=== PATIENT | female | born 1940 | race Caucasian/White ===

== ENCOUNTER 2017-07-12 04:45 | Inpatient (IN) | payer OTHER ==
[2017-07-12] VITALS (7 sets, daily range): BP systolic 114–152; BP diastolic 63–77; PULSE 72–80; TEMP 36.7–37.3; O2SAT 93–95; Ht 160 cm; Wt 55.4 kg
[~2017-07-12] VITALS: Ht 160 cm; Wt 55.4 kg
[~2017-07-12 04:45] MED LIST: ALPR-411 PO; ANT25 PO; ATOR10TA88 PO; BENZ100C6 PO; BUSP15TA70 PO; CALC-342 PO; CARB25TA12 PO; CHOL100010 PO; CLX20 PO; DENO60SO SQ; FLUT0.0529 NAE; LORA10CA2 PO; MAGN200T3 PO; OMEG10007 PO; PROP10TA7 PO
--- NOTE | 2017-07-12 05:16 | EMERGENCY ROOM VISIT NOTE ---
History Report prepared by Lanny: Kat Saucedo Under the Supervision of: Dr. Zoe Lui D.O. First contact with patient: 04:53 Chief Complaint: GI ASSESSMENT Stated Complaint: RECTAL BLEEDING, ABDOMINAL PAIN History of Present Illness The patient is a 77 year old female who presents to the Emergency Room with complaints of constant abdominal cramping that began two hours ago. The patient notes that she also has had bright red rectal bleeding. She denies ever having bloody stools or GI bleeding in the past. The patient notes that she felt ill prior to going to sleep last night. The patient has had routine colonoscopies and she believe she is due for another routine procedure soon. The patient has no known current medical problems and takes no daily medication. Source of History: patient Onset: 2 houirs ago Position: abdomen Quality: cramping Timing: constant Note: Pt notes rectal bleeding. Review of Systems See HPI for pertinent positives & negatives. A total of 10 systems reviewed and were otherwise negative. Past Medical & Surgical Medical Problems: (1) Dyslipidemia (2) Hemorrhoid (3) Kidney stone Surgical Problems: (1) History of appendectomy Family History Cancer Kidney stone Social History Smoking Status: Former Smoker Alcohol Use: none Drug Use: none Marital Status: Housing Status: lives with family Occupation Status: unemployed Current/Historical Medications No Active Prescriptions or Reported Meds Allergies Coded Allergies: Oxycodone (Verified Allergy, Unknown, nausea, 07/12/17) Sulfa Drugs (Verified Allergy, Unknown, 07/12/17) Physical Exam Vital Signs Date Time Temp Pulse Resp B/P (MAP) Pulse Ox O2 Delivery O2 Flow Rate FiO2 07/12/17 06:36 70 16 95 07/12/17 06:31 145/83 07/12/17 06:21 72 13 97 07/12/17 06:06 71 14 97 07/12/17 06:02 71 16 97 07/12/17 06:01 143/76 07/12/17 06:00 73 23 97 Room Air 07/12/17 05:33 79 07/12/17 05:31 137/97 07/12/17 04:50 36.8 92 20 173/82 95 Room Air Physical Exam HEENT: Head - normocephalic and atraumatic Pupils are equal, round, and reactive to light. Extraocular eye muscles are intact, and sclera are anicteric. Nose - moist nasal mucosa without discharge. Mouth - moist buccal mucosa. Oropharynx is nonerythematous and there is no tonsillar exudate or edema noted. Neck: Supple; no JVD, nuchal rigidity, cervical lymphadenopathy. Heart: Regular rate and rhythm. There is a normal S1 and S2 with no murmurs, clicks, or gallops appreciated. Lungs: Clear to auscultation bilaterally with no wheezes, rales, or rhonchi. Abdomen: Soft, pain with palpation of epigastrium and LLQ, nondistended, with good bowel sounds. There are no palpable pulsatile masses or hepatosplenomegaly. There is no guarding, rigidity, or rebound noted. Extremities: No evidence of cyanosis, clubbing, or edema. There are easily palpable peripheral pulses. Skin: warm and dry with good turgor and no rashes. Rectal: No obvious hemorrhoids appreciated. The patient had bright red blood from the rectum. Medical Decision & Procedures ER Provider Diagnostic Interpretation: CT scan of the abdomen/pelvis: As interpreted by radiology IMPRESSION: 1. Moderate wall thickening with mucosal hyperemia and surrounding inflammatory stranding involves the descending colon extending from the splenic flexure to the descending sigmoid junction compatible with colitis from infectious, inflammatory or ischemic etiology. Correlate with laboratory values. 2. Colonic diverticulosis without evidence of acute diverticulitis. 3. Cholelithiasis without CT evidence of acute cholecystitis. Mild prominence of the common bile duct, 8 mm without definite obstructing stone or mass identified. 4. Bilateral renal calcifications suggest nephrolithiasis. No hydronephrosis. Laboratory Results 07/12/17 05:20 Red Blood Count 4.29, Mean Corpuscular Volume 92.8, Mean Corpuscular Hemoglobin 31.2, Mean Corpuscular Hemoglobin Concent 33.7, Mean Platelet Volume 10.3, Neutrophils (%) (Auto) 74.4, Lymphocytes (%) (Auto) 14.4, Monocytes (%) (Auto) 8.9, Eosinophils (%) (Auto) 1.8, Basophils (%) (Auto) 0.3, Neutrophils # (Auto) 7.74, Lymphocytes # (Auto) 1.50, Monocytes # (Auto) 0.93, Eosinophils # (Auto) 0.19, Basophils # (Auto) 0.03 07/12/17 05:20 Test 07/12/17 05:20 07/12/17 05:40 White Blood Count 10.41 K/uL (4.8-10.8) Red Blood Count 4.29 M/uL (4.2-5.4) Hemoglobin 13.4 g/dL (12.0-16.0) Hematocrit 39.8 % (37-47) Mean Corpuscular Volume 92.8 fL (80-100) Mean Corpuscular Hemoglobin 31.2 pg (25-34) Mean Corpuscular Hemoglobin Concent 33.7 g/dl (32-36) Platelet Count 223 K/uL (130-400) Mean Platelet Volume 10.3 fL (7.4-10.4) Neutrophils (%) (Auto) 74.4 % Lymphocytes (%) (Auto) 14.4 % Monocytes (%) (Auto) 8.9 % Eosinophils (%) (Auto) 1.8 % Basophils (%) (Auto) 0.3 % Neutrophils # (Auto) 7.74 K/uL (1.4-6.5) Lymphocytes # (Auto) 1.50 K/uL (1.2-3.4) Monocytes # (Auto) 0.93 K/uL (0.11-0.59) Eosinophils # (Auto) 0.19 K/uL (0-0.5) Basophils # (Auto) 0.03 K/uL (0-0.2) RDW Standard Deviation 48.3 fL (36.4-46.3) RDW Coefficient of Variation 14.2 % (11.5-14.5) Immature Granulocyte % (Auto) 0.2 % Immature Granulocyte # (Auto) 0.02 K/uL (0.00-0.02) Anion Gap 6.0 mmol/L (3-11) Est Creatinine Clear Calc Drug Dose 49.2 ml/min Estimated GFR () 84.4 Estimated GFR (Non- 72.8 BUN/Creatinine Ratio 27.6 (10-20) Calcium Level 9.2 mg/dl (8.5-10.1) Total Bilirubin 0.4 mg/dl (0.2-1) Aspartate Amino Transf (AST/SGOT) 15 U/L (15-37) Alanine Aminotransferase (ALT/SGPT) 12 U/L (12-78) Alkaline Phosphatase 99 U/L (45-117) Total Protein 6.8 gm/dl (6.4-8.2) Albumin 3.5 gm/dl (3.4-5.0) Globulin 3.3 gm/dl (2.5-4.0) Albumin/Globulin Ratio 1.1 (0.9-2) Urine Color YELLOW Urine Appearance CLEAR (CLEAR) Urine pH 7.0 (4.5-7.5) Urine Specific [place] 1.022 (1.000-1.030) Urine Protein NEG (NEG) Urine Glucose (UA) NEG (NEG) Urine Ketones NEG (NEG) Urine Occult Blood NEG (NEG) Urine Nitrite NEG (NEG) Urine Bilirubin NEG (NEG) Urine Urobilinogen NEG (NEG) Urine Leukocyte Esterase NEG (NEG) Laboratory results per my review. Medications Administered Medications (Trade) Dose Ordered Sig/Edison Route Start Time Stop Time Status Last Admin Dose Admin Ondansetron HCl (Zofran Inj) 4 mg NOW STAT IV 07/12/17 06:22 07/12/17 06:23 DC 07/12/17 06:32 4 MG Morphine Sulfate (MoRPHine SULFATE INJ) 4 mg NOW STAT IV 07/12/17 06:22 07/12/17 06:23 DC 07/12/17 06:36 4 MG Sodium Chloride 1,000 ml @ 250 mls/hr Q4H STAT IV 07/12/17 06:24 07/12/17 10:23 07/12/17 06:43 250 MLS/HR Procedure Morphine Sulfate IV, Zofran Inj IV, NSS IV. ED Course 0501: Past medical records reviewed. The patient was evaluated in room B2. A complete history and physical exam was performed. An IV lock was initiated and labs were drawn as above. 0622: Morphine Sulfate 4 mg IV, Zofran Inj 4 mg IV. 0624: Sodium Chloride 1000 ml @ 250 mls/hr IV. The patient went for CT scan of the abdomen/pelvis to rule out diverticulitis. 0645: Upon reevaluation, I discussed findings and results with the patient. She verbalized agreement of the treatment plan. I spoke with Dr. Gilbert of the [facility] Hospitalist Service. The patient will be evaluated for further management and care. Medical Decision The patient is a 77 year old female who presents to the Emergency Room with complaints of constant abdominal cramping that began two hours ago. Differential diagnosis includes lower GI bleed, anemia, hemorrhoid, diverticulitis. Lab results show normal white count, stable H&H, BUN 22, creatinine 0.7, glucose 112, LFT normal, urine pending. This is a 69-year-old female patient who is in very good health and presents to the emergency department with crampy abdominal pain and lower GI bleeding. The patient describes having previous colonoscopies which were unremarkable. She denies any constipation. She denies fevers, chills or vomiting. Her H&H is stable. CT scan shows evidence of colitis. I discussed the case with the [facility] Hospitalist and they will evaluate further management. Medication Reconcilliation Current Medication List: was personally reviewed by me Blood Pressure Screening Patient's blood pressure: Elevated blood pressure Blood pressure disposition: Elevated BP felt to be situational Consults Time Called: 0644 Consulting Physician: Dr. Stearns Returned Call: [phone] Discussed the patient's case. The patient will be evaluated for further management. Impression Primary Impression: Lower GI bleed Additional Impression: Colitis Scribe Attestation The scribe's documentation has been prepared under my direction and personally reviewed by me in its entirety. I confirm that the note above accurately reflects all work, treatment, procedures, and medical decision making performed by me. Departure Information Prescriptions No Active Prescriptions or Reported Meds Referrals Hortencia Ortiz M.D. (PCP) Patient Instructions My [facility] Problem Qualifiers
[2017-07-12 05:43] LABS: BASO % 0.3 %; BASO ABS # 0.03 K/uL (0-0.2); COMPLETE YES; EOS % 1.8 %; HEMATOCRIT 39.8 % (37-47); IG% 0.2 %; LYMPH % 14.4 %; MEAN CELL VOLUME 92.8 fL (80-100); MEAN CORPUSCULAR HEMOGLOBIN 31.2 pg (25-34); MEAN CORPUSCULAR HGB CONC 33.7 g/dl (32-36); MEAN PLATELET VOLUME 10.3 fL (7.4-10.4); MONO % 8.9 %; NEUT % 74.4 %; PLATELET COUNT 223 K/uL (130-400); RED BLOOD COUNT 4.29 M/uL (4.2-5.4); WHITE BLOOD COUNT 10.41 K/uL (4.8-10.8)
[2017-07-12 06:03] LABS: BUN/CREATININE RATIO 27.6 (10-20); CALCIUM 9.2 mg/dl (8.5-10.1); CREATININE 0.78 mg/dl (0.60-1.20)
[2017-07-12 06:06] LABS: ALB/GLOB RATIO 1.1 (0.9-2)
[2017-07-12] MEDS ORDERED: ONDANSETRON INJ 2 MG/ML 2 ML VIAL IV STA (06:22)
[2017-07-12] MEDS ORDERED: MoRPHine SULFATE 4 MG/ML 1 ML CARP\\VIAL IV STA (06:22)
[2017-07-12] MEDS ORDERED: SODIUM CHLORIDE 0.9% 1000ML 1,000 ML IV STA (06:24)
[2017-07-12 06:52] LABS: URINE APPEARANCE CLEAR (CLEAR); URINE BILIRUBIN NEG (NEG); URINE COLOR YELLOW; URINE NITRITE NEG (NEG); URINE SPECIFIC GRAVITY 1.022 (1.000-1.030); UROBILINOGEN NEG (NEG)
[2017-07-12 06:54] LABS: REVIEW REQ? NO
[2017-07-12 06:55] LABS: MANUAL MICROSCOPIC REQUIRED? NO
--- NOTE | 2017-07-12 07:17 | DIAGNOSTIC IMAGING REPORT ---
ABD/PELVIS IV CONTRAST ONLY HISTORY: 77 years-old Female eval for diverticulitis acute generalized abdominal pain with rectal bleeding. Initial exam. COMPARISON: None available. TECHNIQUE: Multiple axial CT images of the abdomen and pelvis were obtained following the intravenous administration of 93 mL Optiray 320. A dose lowering technique was used consistent with the principals of AMINTA. FINDINGS: Lung bases are generally clear with minimal subsegmental atelectasis and/or pleural parenchymal scarring of the lung bases. 2 mm noncalcified pulmonary nodule seen within the inferior segment lingula on image 20, nonspecific and likely benign. There is no pneumoperitoneum. Imaged inferior cardiac chambers are unremarkable with coronary arterial calcifications. Liver, spleen, and adrenal glands are unremarkable. Gallstones are seen within the gallbladder lumen without CT evidence of acute cholecystitis. There is moderate diffuse pancreatic atrophy atrophy. There is mild prominence of the common bile duct, 8 mm without obstructing stone or mass identified. There may also be mild prominence of the distal pancreatic duct. 4 mm calcification of the superior pole left kidney suggest calculus. Renal parenchymal scarring of the superior pole left kidney is noted. 3 mm calcification is seen within the inferior pole right kidney. No ureteral calculi or hydronephrosis. Urinary bladder is unremarkable. Prior hysterectomy. Since of atherosclerotic plaquing of the abdominal aorta and branch vessels is noted. No bulky adenopathy. There is a small sliding-type hiatal hernia. There is no bowel obstruction. Scattered noninflamed colonic diverticula are present. There is moderate wall thickening with mucosal hyperemia involving the descending colon extending from the splenic flexure to the descending sigmoid junction. Mild surrounding inflammatory stranding also noted. Moderate stool burden of the right hemicolon. Appendix not seen, however no secondary evidence of acute appendicitis. Soft tissues are unremarkable. The bones are demineralized but appear intact. Advanced spine degenerative changes are seen at several levels. 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 Prior posterior decompression with interbody marshall and screw fusion hardware at L2-S1. Prior discectomy changes at L3-L4 and L4-L5. IMPRESSION: 1. Moderate wall thickening with mucosal hyperemia and surrounding inflammatory stranding involves the descending colon extending from the splenic flexure to the descending sigmoid junction compatible with colitis from infectious, inflammatory or ischemic etiology. Correlate with laboratory values. 2. Colonic diverticulosis without evidence of acute diverticulitis. 3. Cholelithiasis without CT evidence of acute cholecystitis. Mild prominence of the common bile duct, 8 mm without definite obstructing stone or mass identified. 4. Bilateral renal calcifications suggest nephrolithiasis. No hydronephrosis. The above report was generated using voice recognition software. It may contain grammatical, syntax or spelling errors. Electronically signed by: jE Tello M.D. 07/12/2017 7:16 AM Dictated Date/Time: 07/12/2017 7:05 AM
[2017-07-12] MEDS ORDERED: ONDANSETRON INJ 2 MG/ML 2 ML VIAL IV PRN (08:45)
[2017-07-12] MEDS ORDERED: POLYETHYLENE (MIRALAX) 17 GM PACK PO PRN (08:45)
--- NOTE | 2017-07-12 09:21 | History and Physical ---
History & Physical Date & Time of Service: Jul 12, 2017 at 08:21 Chief Complaint: Rectal Bleeding, Abdominal Pain Primary Care Physician: Hortencia Ortiz M.D. History of Present Illness Source: patient, clinic records, hospital records, friend 77 year old female with no significant PMH and not taking any prescription med presents to the Emergency Room with complaints of bright red rectal bleeding associated with abdominal pain. Pt said that last night she went out to eat with her friends. she said late night she felt sick. she said that she started to vomiting. She had many episodes of non bloody vomiting. She said that she started to have multiple episode of bloody diarrhea associated with cramping abdominal pain located in the mid abdomen. Pain is non radiated, constant, grade 6 out 10. Alleviated with the pain med she was given in the ER. Pt said that every few months she sometimes develops some abdominal pain and diarrhea but never seen blood in her stool. she said that she was feeling a little dizzy last night and chest discomfort in the mid epigastric area. She said that she believes that she is due for her routine colonoscopy. Last episodes of vomiting was last night. Last bloody episodes of diarrhea was this morning. As per ER team patient had bright red blood from the rectum. Currently denies any chest pain, palpitation, dizziness, fever and sob. Past Medical/Surgical History Medical Problems: (1) Dyslipidemia Status: Chronic (2) Hemorrhoid Status: Resolved (3) Kidney stone Status: Resolved Surgical Problems: (1) History of appendectomy Status: Resolved Family History Cancer Kidney stone Social History Smoking Status: Former Smoker Drug Use: none Marital Status: Housing status: lives with family Occupational Status: unemployed Immunizations History of Influenza Vaccine: Yes Influenza Vaccine Date: Aug 01, 2011 History of Tetanus Vaccine?: Unknown History of Pneumococcal: Yes Pneumococcal Date: Aug 01, 2011 History of Hepatitis B Vaccine: Unknown Multi-Drug Resistant Organisms History of MDRO: No Allergies Coded Allergies: Oxycodone (Verified Allergy, Unknown, nausea, 07/12/17) Sulfa Antibiotics (Verified Allergy, Unknown, UNKNOWN, 07/12/17) Home Medications No Active Prescriptions or Reported Meds Review of Systems Constitutional: No fever, No chills Eyes: No redness, No discharge ENT: No sore throat Respiratory: No cough, No sputum, No wheezing Cardiovascular: + problem reported (Chest discomfort) Abdomen: + pain, + nausea, + vomiting, + diarrhea, + GI bleeding Musculoskeletal: No calf pain Genitourinary - Female: No dysuria, No hematuria Neurologic: No memory loss, No paralysis Psychiatric: No substance abuse Hematologic / Lymphatic: No night sweats Integumentary: No rash, No itch Physical Exam Vital Signs Date Time Temp Pulse Resp B/P (MAP) Pulse Ox O2 Delivery O2 Flow Rate FiO2 07/12/17 08:25 71 16 143/70 95 Room Air 07/12/17 06:36 70 16 95 07/12/17 06:31 145/83 07/12/17 06:21 72 13 97 07/12/17 06:06 71 14 97 07/12/17 06:02 71 16 97 07/12/17 06:01 143/76 07/12/17 06:00 73 23 97 Room Air 07/12/17 05:33 79 07/12/17 05:31 137/97 07/12/17 04:50 36.8 92 20 173/82 95 Room Air General Appearance: WD/WN, no apparent distress Head: normocephalic, atraumatic Eyes: PERRL, EOMI ENT: normal ENT inspection Neck: no JVD Respiratory/Chest: normal breath sounds, no respiratory distress, no accessory muscle use Cardiovascular: regular rate, rhythm, no JVD Abdomen/GI: normal bowel sounds, + tenderness Back: no CVA tenderness Extremities/Musculoskelatal: no calf tenderness Neurologic/Psych: no motor/sensory deficits, alert, oriented x 3 Skin: warm/dry, no rash Diagnostics Laboratory Results Results Past 24 Hours Test 07/12/17 05:20 07/12/17 05:40 Range/Units White Blood Count 10.41 4.8-10.8 K/uL Red Blood Count 4.29 4.2-5.4 M/uL Hemoglobin 13.4 12.0-16.0 g/dL Hematocrit 39.8 37-47 % Mean Corpuscular Volume 92.8 80-100 fL Mean Corpuscular Hemoglobin 31.2 25-34 pg Mean Corpuscular Hemoglobin Concent 33.7 32-36 g/dl Platelet Count 223 130-400 K/uL Mean Platelet Volume 10.3 7.4-10.4 fL Neutrophils (%) (Auto) 74.4 % Lymphocytes (%) (Auto) 14.4 % Monocytes (%) (Auto) 8.9 % Eosinophils (%) (Auto) 1.8 % Basophils (%) (Auto) 0.3 % Neutrophils # (Auto) 7.74 1.4-6.5 K/uL Lymphocytes # (Auto) 1.50 1.2-3.4 K/uL Monocytes # (Auto) 0.93 0.11-0.59 K/uL Eosinophils # (Auto) 0.19 0-0.5 K/uL Basophils # (Auto) 0.03 0-0.2 K/uL RDW Standard Deviation 48.3 36.4-46.3 fL RDW Coefficient of Variation 14.2 11.5-14.5 % Immature Granulocyte % (Auto) 0.2 % Immature Granulocyte # (Auto) 0.02 0.00-0.02 K/uL Sodium Level 142 136-145 mmol/L Potassium Level 4.0 3.5-5.1 mmol/L Chloride Level 109 98-107 mmol/L Carbon Dioxide Level 27 21-32 mmol/L Anion Gap 6.0 3-11 mmol/L Blood Urea Nitrogen 22 7-18 mg/dl Creatinine 0.78 0.60-1.20 mg/dl Est Creatinine Clear Calc Drug Dose 49.2 ml/min Estimated GFR () 84.4 Estimated GFR (Non- 72.8 BUN/Creatinine Ratio 27.6 10-20 Random Glucose 112 70-99 mg/dl Calcium Level 9.2 8.5-10.1 mg/dl Total Bilirubin 0.4 0.2-1 mg/dl Aspartate Amino Transf (AST/SGOT) 15 15-37 U/L Alanine Aminotransferase (ALT/SGPT) 12 12-78 U/L Alkaline Phosphatase 99 45-117 U/L Total Protein 6.8 6.4-8.2 gm/dl Albumin 3.5 3.4-5.0 gm/dl Globulin 3.3 2.5-4.0 gm/dl Albumin/Globulin Ratio 1.1 0.9-2 Urine Color YELLOW Urine Appearance CLEAR CLEAR Urine pH 7.0 4.5-7.5 Urine Specific [place] 1.022 1.000-1.030 Urine Protein NEG NEG Urine Glucose (UA) NEG NEG Urine Ketones NEG NEG Urine Occult Blood NEG NEG Urine Nitrite NEG NEG Urine Bilirubin NEG NEG Urine Urobilinogen NEG NEG Urine Leukocyte Esterase NEG NEG Diagnostic Radiology ABD/PELVIS IV CONTRAST ONLY HISTORY: 77 years-old Female eval for diverticulitis acute generalized abdominal pain with rectal bleeding. Initial exam. COMPARISON: None available. TECHNIQUE: Multiple axial CT images of the abdomen and pelvis were obtained following the intravenous administration of 93 mL Optiray 320. A dose lowering technique was used consistent with the principals of AMINTA. FINDINGS: Lung bases are generally clear with minimal subsegmental atelectasis and/or pleural parenchymal scarring of the lung bases. 2 mm noncalcified pulmonary nodule seen within the inferior segment lingula on image 20, nonspecific and likely benign. There is no pneumoperitoneum. Imaged inferior cardiac chambers are unremarkable with coronary arterial calcifications. Liver, spleen, and adrenal glands are unremarkable. Gallstones are seen within the gallbladder lumen without CT evidence of acute cholecystitis. There is moderate diffuse pancreatic atrophy atrophy. There is mild prominence of the common bile duct, 8 mm without obstructing stone or mass identified. There may also be mild prominence of the distal pancreatic duct. 4 mm calcification of the superior pole left kidney suggest calculus. Renal parenchymal scarring of the superior pole left kidney is noted. 3 mm calcification is seen within the inferior pole right kidney. No ureteral calculi or hydronephrosis. Urinary bladder is unremarkable. Prior hysterectomy. Since of atherosclerotic plaquing of the abdominal aorta and branch vessels is noted. No bulky adenopathy. There is a small sliding-type hiatal hernia. There is no bowel obstruction. Scattered noninflamed colonic diverticula are present. There is moderate wall thickening with mucosal hyperemia involving the descending colon extending from the splenic flexure to the descending sigmoid junction. Mild surrounding inflammatory stranding also noted. Moderate stool burden of the right hemicolon. Appendix not seen, however no secondary evidence of acute appendicitis. Soft tissues are unremarkable. The bones are demineralized but appear intact. Advanced spine degenerative changes are seen at several levels. 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 Prior posterior decompression with interbody marshall and screw fusion hardware at L2-S1. Prior discectomy changes at L3-L4 and L4-L5. IMPRESSION: 1. Moderate wall thickening with mucosal hyperemia and surrounding inflammatory stranding involves the descending colon extending from the splenic flexure to the descending sigmoid junction compatible with colitis from infectious, inflammatory or ischemic etiology. Correlate with laboratory values. 2. Colonic diverticulosis without evidence of acute diverticulitis. 3. Cholelithiasis without CT evidence of acute cholecystitis. Mild prominence of the common bile duct, 8 mm without definite obstructing stone or mass identified. 4. Bilateral renal calcifications suggest nephrolithiasis. No hydronephrosis. The above report was generated using voice recognition software. It may contain grammatical, syntax or spelling errors. Electronically signed by: Ej Tello M.D. 07/12/2017 7:16 AM Dictated Date/Time: 07/12/2017 7:05 AM Impression Assessment and Plan Bright Red Rectal Bleeding Possible related to ischemic colitis vs infectious colitis CT abd/pelvis showed Moderate wall thickening with mucosal hyperemia and surrounding inflammatory stranding involves the descending colon extending from the splenic flexure to the descending sigmoid junction compatible with colitis. Started on IV flagyl and cipro Lactic acid acid normal Hbg stable will monitor H/H GI consulted Case discussed with Dr. Lozano recommended to continue abx continue supportive management outpatient Colonoscopy in 6 months ok to start on clear liquid diet pain management Chest discomfort Atypical features Need to r/o ACS will check troponin EKG showed no ischemic changes No aspirin given due to GI bleed will monitor in tele GI px on PPI DVT px on SCDs Code status FULL no mech ventilation as per my discussion with patient. Level of Care Telemetry Resuscitation Status FULL NO MECH VENTILATION VTE Prophylaxis VTE Risk Assessment Done? Y/N: Yes Risk Level: Moderate Given or contraindicated: SCD's
[2017-07-12] MEDS ORDERED: METRONIDAZOLE 500MG / 100ML NSS ONE (09:32)
[2017-07-12] MEDS ORDERED: SODIUM CHLORIDE 0.9% 1000ML 1,000 ML IV SCH (10:30)
[2017-07-12] MEDS: CIPROFLOXACIN / D5W 400 MG in PREMIXED IN D5W 200 ML IV SCH ×2 (11:03→22:18)
[2017-07-12 12:51] LABS: MEAN CELL VOLUME 94.1 fL (80-100); MEAN CORPUSCULAR HEMOGLOBIN 29.9 pg (25-34); MEAN CORPUSCULAR HGB CONC 31.8 g/dl (32-36); MEAN PLATELET VOLUME 10.3 fL (7.4-10.4); PLATELET COUNT 217 K/uL (130-400); RED BLOOD COUNT 4.25 M/uL (4.2-5.4); WHITE BLOOD COUNT 10.22 K/uL (4.8-10.8)
--- NOTE | 2017-07-12 15:08 | GASTROINTESTINAL CONSULTATION ---
DATE OF CONSULTATION: 07/12/2017 AGE: 77. SEX: Female. RACE: . ATTENDING PHYSICIAN: Dr. José. CONSULTING PHYSICIAN: Dr. Lozano. REASON FOR CONSULTATION: GI bleed. HISTORY OF PRESENT ILLNESS: Armida Johnson is a 77-year-old female who presented to the Department of Emergency Medicine early this morning with complaints of rectal bleeding and abdominal pain. She states that over the past few weeks, she has been having intermittent chest pain as well as dyspnea on exertion and describes the pain as intermittent pressure in the substernal region, nonradiating, but does state that it gets worse with walking up steps. She states that she had period last evening of some crampy abdominal pain as well as diaphoresis and developed several bloody stools. Her H&H on arrival was 13.4 and 39.8. Her liver panel was unremarkable. She did undergo a CT scan of the abdomen and pelvis and was noted to have moderate wall thickening with mucosal hyperemia and surrounding inflammatory stranding, involving the descending colon from the splenic flexure to the sigmoid junction. She was subsequently admitted. She was started on Cipro and Flagyl therapy. She stated that she was feeling slightly improved, but still did complain of intermittent chest pain. I spoke with Dr. José in this regard and he had already ordered an EKG and troponin levels, which were pending. PAST MEDICAL HISTORY: Includes hyperlipidemia, hemorrhoids, and nephrolithiasis. PAST SURGICAL HISTORY: Includes an appendectomy. ALLERGIES: OXYCODONE AND SULFA ANTIBIOTICS. MEDICATIONS AT PRESENT: Include Cipro 400 mg IV q. 12 hours, Flagyl 500 mg IV q. 8 hours, Zofran 4 mg IV q. 6 hours p.r.n. nausea, and MiraLax 17 grams p.o. daily p.r.n. constipation. SOCIAL HISTORY: She denies any tobacco, alcohol or illicit drug use. She is . FAMILY HISTORY: Negative for GI malignancy or inflammatory bowel disease. REVIEW OF SYSTEMS: Negative x12 system review other than pertinent positives listed in the HPI. PHYSICAL EXAMINATION: VITAL SIGNS: Temp 36.8, pulse 72, respirations 16, blood pressure 117/70, and pulse ox 93% on room air. GENERAL: Awake and cooperative. No acute distress. HEAD: Normocephalic and atraumatic. EYES: Pupils equally round. Extraocular muscles are intact. ENT: External evaluation of ears and nose is normal. Oropharynx is clear. NECK: Soft and supple. There is no JVD or lymphadenopathy. CHEST: Clear to auscultation bilaterally. CARDIOVASCULAR SYSTEM: Regular rate and rhythm. ABDOMEN: Soft. Tender in left upper quadrant and left lower quadrant. Nondistended. There are positive bowel sounds. There is no hepatosplenomegaly or stigmata of chronic liver disease. EXTREMITIES: No clubbing, cyanosis, or edema. SKIN: Soft and pink. Good turgor. LABORATORY STUDIES: Reviewed. RADIOGRAPHIC STUDIES: Reviewed and as per the HPI. IMPRESSION: A 77-year-old female presenting with abdominal pain, rectal bleeding and CT imaging consistent with evidence of ischemic colitis. PLAN: At the present time, I would recommend the patient continue on IV Cipro and Flagyl therapy. She will need to complete a 10-day course of antibiotics to prevent bacterial translocation across the damaged colonic mucosa. Greater than 90% of the patients with ischemic colitis have complete resolution without any intervention and I expect her to have this outcome as well. The troponin as well as the EKG is pending at this time and will be followed by Dr. José. I would recommend continuing supportive care. She will need a colonoscopy in 6 weeks' time. Following complete resolution of her symptoms, I will follow her clinical course and make further recommendations as needed. Once again, thanks for allowing me to participate in the care of this patient. If you have any further questions, please do not hesitate in contacting me. DAHIANA
[2017-07-12] MEDS: METRONIDAZOLE / NSS 500 MG in PREMIXED NSS 100 ML IV SCH (17:47)
[2017-07-12] MEDS: MoRPHine SULFATE 2 MG/ML CARP IV PRN ×2 (18:14→22:18)
[2017-07-13] VITALS (8 sets, daily range): BP systolic 93–127; BP diastolic 52–77; PULSE 60–83; TEMP 36.9–37.2; O2SAT 92–96
[2017-07-13] MEDS: METRONIDAZOLE / NSS 500 MG in PREMIXED NSS 100 ML IV SCH ×3 (01:43→17:24)
[2017-07-13 06:57] LABS: HEMATOCRIT 38.4 % (37-47); MEAN CELL VOLUME 95.5 fL (80-100); MEAN CORPUSCULAR HEMOGLOBIN 30.3 pg (25-34); MEAN CORPUSCULAR HGB CONC 31.8 g/dl (32-36); MEAN PLATELET VOLUME 10.4 fL (7.4-10.4); PLATELET COUNT 214 K/uL (130-400); RED BLOOD COUNT 4.02 M/uL (4.2-5.4); WHITE BLOOD COUNT 11.36 K/uL (4.8-10.8)
[2017-07-13 07:34] LABS: BUN/CREATININE RATIO 14.1 (10-20); CALCIUM 8.7 mg/dl (8.5-10.1); CREATININE 0.61 mg/dl (0.60-1.20)
[2017-07-13] MEDS: PANTOprazole SOD 40 MG TAB PO SCH (07:43)
--- NOTE | 2017-07-13 09:52 | Gastroenterology Progress Note ---
Progress Note Date of Service: Jul 13, 2017 Subjective Pt evaluation today including: conversation w/ patient, physical exam, lab review, review of studies Patient is a 77 yo female with ischemic colitis. She reports she is feeling better this morning. She reports resolution of chest pain & upper abdominal pain , but notes that her lower abdominal pain persists. She reports she has not had a bowel movement for several days, but did pass BRBPR this AM. She reports that she struggles with constipation. She was taking Colace 100 mg TID at home, but reports this was not helping. She has a history of a hemorrhoidectomy in the past. She does not feel ready to advance her diet. She denies fevers, chills, or new concerns at present. Review of Systems Constitutional: No fever, No chills Respiratory: No cough, No shortness of breath Cardiac: No chest pain Abdomen: + pain, + GI bleeding, No nausea, No vomiting, No diarrhea, No constipation Musculoskeletal: No joint pain Psych: No problem reported Skin: No problem reported Medications Current Inpatient Medications Medications (Trade) Dose Ordered Sig/Edison Route Start Time Stop Time Status Last Admin Dose Admin Ondansetron HCl (Zofran Inj) 4 mg Q6H PRN IV 07/12/17 08:45 08/11/17 08:44 Polyethylene (Miralax Powder Packet) 17 gm DAILY PRN PO 07/12/17 08:45 08/11/17 08:44 Metronidazole 500 mg/Prmx 100 ml @ 100 mls/hr Q8H IV 07/12/17 18:00 07/22/17 17:59 07/13/17 01:43 100 MLS/HR Ciprofloxacin/ Dextrose 400 mg/ Prmx 200 ml @ 100 mls/hr Q12@1000,2200 IV 07/12/17 10:30 07/22/17 10:29 07/12/17 22:18 100 MLS/HR Pantoprazole Sodium (Protonix Tab) 40 mg QAM PO 07/13/17 09:00 08/12/17 08:59 07/13/17 07:43 40 MG Morphine Sulfate (MoRPHine SULFATE INJ) 1 mg Q4HWA PRN IV 07/12/17 17:00 07/26/17 16:59 07/12/17 22:18 1 MG Objective Vital Signs Date Time Temp Pulse Resp B/P (MAP) Pulse Ox O2 Delivery O2 Flow Rate FiO2 07/13/17 08:00 92 Room Air 07/13/17 07:14 36.9 60 18 93/54 (67) 92 Room Air 07/13/17 04:00 Room Air 07/13/17 03:56 37.0 83 18 102/57 (72) 93 Room Air 07/12/17 23:59 Room Air 07/12/17 23:39 37.3 80 18 114/63 (80) 93 Room Air 07/12/17 20:00 Room Air 07/12/17 19:29 37.1 76 18 134/69 (90) 93 Room Air 07/12/17 15:34 93 Room Air 07/12/17 15:16 36.8 73 16 121/63 (82) 94 Room Air 07/12/17 12:20 36.8 72 16 117/70 (86) 93 Room Air 07/12/17 11:59 Room Air 07/12/17 10:00 36.7 80 17 152/77 (102) 93 Room Air Physical Exam General Appearance: WD/WN, no apparent distress Eyes: normal inspection, PERRL Respiratory/Chest: lungs clear, normal breath sounds Cardiovascular: regular rate, rhythm Abdomen: normal bowel sounds, soft, + tenderness (LLQ) Extremities: non-tender Neurologic/Psych: alert, oriented x 3 Skin: normal color Laboratory Results Last 24 Hours Test 07/12/17 12:30 07/12/17 18:57 07/13/17 06:05 White Blood Count 10.22 K/uL 11.36 K/uL Red Blood Count 4.25 M/uL 4.02 M/uL Hemoglobin 12.7 g/dL 12.2 g/dL Hematocrit 40.0 % 38.4 % Mean Corpuscular Volume 94.1 fL 95.5 fL Mean Corpuscular Hemoglobin 29.9 pg 30.3 pg Mean Corpuscular Hemoglobin Concent 31.8 g/dl 31.8 g/dl RDW Standard Deviation 49.8 fL 51.7 fL RDW Coefficient of Variation 14.3 % 14.6 % Platelet Count 217 K/uL 214 K/uL Mean Platelet Volume 10.3 fL 10.4 fL Lactic Acid Level 0.8 mmol/L Troponin I < 0.015 ng/ml < 0.015 ng/ml Sodium Level 140 mmol/L Potassium Level 4.0 mmol/L Chloride Level 108 mmol/L Carbon Dioxide Level 28 mmol/L Anion Gap 4.0 mmol/L Blood Urea Nitrogen 9 mg/dl Creatinine 0.61 mg/dl Est Creatinine Clear Calc Drug Dose 62.9 ml/min Estimated GFR () 100.6 Estimated GFR (Non- 86.8 BUN/Creatinine Ratio 14.1 Random Glucose 102 mg/dl Calcium Level 8.7 mg/dl Assessment and Plan Patient is a 77 yo female with ischemic colitis. Her abdominal pain is improving. She is now reporting constipation. 1) Continue antibiotic treatment with Cipro & Flagyl x 10 days. 2) Plan for colonoscopy in 6 weeks. 3) Clear liquid diet with advancement as tolerated. 4) Add Miralax 17 gm daily and Colace 100 mg TID. 5) Supportive care per primary team. Thank you for allowing us to care for this patient. If you should have any further questions or concerns, do not hesitate to contact us. Agree with VIOLETA Plascencia as above Abd: Soft, Tender LLQ, +BS Continue supportive care and current treatment Discussed Case with Dr. Paul Colonoscopy in 6 weeks as outpatient.
[2017-07-13] MEDS: CIPROFLOXACIN / D5W 400 MG in PREMIXED IN D5W 200 ML IV SCH ×2 (10:33→21:47)
[2017-07-13] MEDS ORDERED: SODIUM CHLORIDE 0.9% 500ML 500 ML IV SCH (13:45)
--- NOTE | 2017-07-13 13:48 | Progress Note ---
Medicine Progress Note Date & Time of Visit: Jul 13, 2017 at 09:10. (Izabela Patrick PA-C) Subjective Patient seen and examined after being admitted yesterday for abdominal pain and rectal bleeding with CT consistent with ischemic colitis. Last rectal bleeding was yesterday. She did not pass any stool today. Has taken in ice chips and Jello today, but continues to have lower abdominal cramping after PO intake. Feels mildly weak but able to ambulate to restroom without issues. No chest pain today. Patient is being ruled out for chest pain which had been intermittent for past 1-2 months. She describes episodes of chest heaviness lasting a few minutes while resting in bed which she attributes to stress. Denies dizziness, fever, chills, cough, SOB, N/V, calf pain, edema. Voiding without issues. (Izabela Patrick PA-C) Objective Last 8 Hrs Date Time Temp Pulse Resp B/P (MAP) Pulse Ox O2 Delivery O2 Flow Rate FiO2 07/13/17 08:00 92 Room Air 07/13/17 07:14 36.9 60 18 93/54 (67) 92 Room Air 07/13/17 04:00 Room Air 07/13/17 03:56 37.0 83 18 102/57 (72) 93 Room Air Physical Exam: General- pleasant alert 77 year old female, sitting on edge of bed, no distress Eyes- anicteric ENT-hearing intact Neck-trachea midline Lungs-CTA, no wheezing, rhonchi, or crackles Heart-regular rate and rhythm, no murmur Abdomen-soft, tender across lower abdomen, bowel sounds normal Extremities- no deformity, no edema, no calf tenderness Neuro- alert, oriented x 3, affect normal Laboratory Results: Last 24 Hours Test 07/12/17 12:30 07/12/17 18:57 07/13/17 06:05 White Blood Count 10.22 K/uL 11.36 K/uL Red Blood Count 4.25 M/uL 4.02 M/uL Hemoglobin 12.7 g/dL 12.2 g/dL Hematocrit 40.0 % 38.4 % Mean Corpuscular Volume 94.1 fL 95.5 fL Mean Corpuscular Hemoglobin 29.9 pg 30.3 pg Mean Corpuscular Hemoglobin Concent 31.8 g/dl 31.8 g/dl RDW Standard Deviation 49.8 fL 51.7 fL RDW Coefficient of Variation 14.3 % 14.6 % Platelet Count 217 K/uL 214 K/uL Mean Platelet Volume 10.3 fL 10.4 fL Lactic Acid Level 0.8 mmol/L Troponin I < 0.015 ng/ml < 0.015 ng/ml Sodium Level 140 mmol/L Potassium Level 4.0 mmol/L Chloride Level 108 mmol/L Carbon Dioxide Level 28 mmol/L Anion Gap 4.0 mmol/L Blood Urea Nitrogen 9 mg/dl Creatinine 0.61 mg/dl Est Creatinine Clear Calc Drug Dose 62.9 ml/min Estimated GFR () 100.6 Estimated GFR (Non- 86.8 BUN/Creatinine Ratio 14.1 Random Glucose 102 mg/dl Calcium Level 8.7 mg/dl (Izabela Patrick PA-C) Assessment & Plan RECTAL BLEEDING Presented with bright red blood per rectum, likely lower GI bleeding CT a/p consistent with ischemic colitis Hg 13.4 -> 12.2 Denies bleeding this morning Continue IV Cipro and Flagyl, per GI will need 10 day course to prevent bacterial translocation across damaged colonic mucosa On clear liquid diet Pain management with PRN IV morphine GI consulted; appreciate input Plan for outpatient colonoscopy in 6 months CHEST PAIN/ MAY Had intermittent chest pain episodes during rest for 1-2 months which patient associates with anxiety, currently chest pain free No history of CAD; prior stress echo 03/26/2016- "The stress echo is negative for inducible ischemia. No arrhythmias. Normal HR and BP response to exercise. Markedly reduced exercise tolerance. At rest, normal LV chamber size with mild concentric LVH. Normal LV systolic function without regional wall motion abnormality, EF 55-60%. Grade I diastolic dysfunction. No significant valvular pathology." Troponin negative x 2 EKG showed no ischemic changes Not given aspirin due to GIB Telemetry monitoring Check TTE Consider outpatient stress test DVT PROPHYLAXIS SCD's due to GIB CODE STATUS Full code no mech ventilation as per admitting provider's discussion with patient DISPOSITION Telemetry Follows with Dr. Ortiz for primary care Patient seen in collaboration with Dr. Paul. Please see her addendum. Current Inpatient Medications: Current Inpatient Medications Medications (Trade) Dose Ordered Sig/Edison Route Start Time Stop Time Status Last Admin Dose Admin Ondansetron HCl (Zofran Inj) 4 mg Q6H PRN IV 07/12/17 08:45 08/11/17 08:44 Polyethylene (Miralax Powder Packet) 17 gm DAILY PRN PO 07/12/17 08:45 08/11/17 08:44 Metronidazole 500 mg/Prmx 100 ml @ 100 mls/hr Q8H IV 07/12/17 18:00 07/22/17 17:59 07/13/17 01:43 100 MLS/HR Ciprofloxacin/ Dextrose 400 mg/ Prmx 200 ml @ 100 mls/hr Q12@1000,2200 IV 07/12/17 10:30 07/22/17 10:29 07/12/17 22:18 100 MLS/HR Pantoprazole Sodium (Protonix Tab) 40 mg QAM PO 07/13/17 09:00 08/12/17 08:59 07/13/17 07:43 40 MG Morphine Sulfate (MoRPHine SULFATE INJ) 1 mg Q4HWA PRN IV 07/12/17 17:00 07/26/17 16:59 07/12/17 22:18 1 MG (Izabela Patrick PA-C) ADDENDUM: I have seen and evaluated that patient and agree with the above assessment and plan with the following exceptions. Ms. Johnson reports "spells" of vomiting and abdominal pain every 2-3 months for the past 4 years. 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 She has had no rectal bleeding in the past and is currently the same as yesterday with some blood in stool today that was quarter-sized. Her H/H and vitals have remained stable and she still has some diffused tenderness in her abdomen that is worse in the suprapubic region. Case was discussed with Dr. Lozano and will cont supportive care and advancing her diet as tolerated. She is still only tolerating jello and sips of water at this time. Will cont IVF until tolerating PO more reliably. Regarding her chest pressure and shortness of breath, she reports that is the last 1-2 months she has gone from carrying a laundry basket up the stairs without stopping to being short of breath while pulling clothes out of the dryer. She will get SOB with exertion and then develop chest pressure substernally which will wrap around her L ribcage and subsequently resolve with rest in just a few minutes. She reports that the intensity of these episodes in increased. I discussed the case with Dr. Elizalde from Cardiology who recommended against stress testing in the setting of ischemic gut and follow-up as outpatient as soon as able. Will cont supportive care on telemetry one more night in light of recent symptoms. DO Humberto (Lisseth Paul, DO)
[2017-07-13] MEDS: SODIUM CHLORIDE 0.9% 1000ML 1,000 ML IV SCH ×2 (13:49→20:10)
[2017-07-13] MEDS: DOCUSATE SODIUM 100 MG CAP PO SCH ×2 (13:50→20:10)
[2017-07-13] MEDS: MoRPHine SULFATE 2 MG/ML CARP IV PRN (20:13)
[2017-07-13] MEDS ORDERED: ZOLPIDEM TARTRATE 5 MG TAB ONE (21:59)
[2017-07-13] MEDS ORDERED: ZOLPIDEM TARTRATE 5 MG TAB PO PRN (22:00)
[2017-07-14] VITALS: BP 124/69; PULSE 70; TEMP 36.8; O2SAT 96
[2017-07-14] MEDS: METRONIDAZOLE / NSS 500 MG in PREMIXED NSS 100 ML IV SCH ×3 (02:44→17:37)
[2017-07-14 04:00] VITALS: BP 115/65; PULSE 81; TEMP 36.7; O2SAT 94
[2017-07-14 05:51] LABS: HEMATOCRIT 35.8 % (37-47); MEAN CELL VOLUME 94.5 fL (80-100); MEAN CORPUSCULAR HEMOGLOBIN 30.6 pg (25-34); MEAN CORPUSCULAR HGB CONC 32.4 g/dl (32-36); MEAN PLATELET VOLUME 10.6 fL (7.4-10.4); PLATELET COUNT 185 K/uL (130-400); RED BLOOD COUNT 3.79 M/uL (4.2-5.4); WHITE BLOOD COUNT 7.92 K/uL (4.8-10.8)
[2017-07-14 06:22] LABS: BUN/CREATININE RATIO 13.8 (10-20); CALCIUM 8.3 mg/dl (8.5-10.1); CREATININE 0.58 mg/dl (0.60-1.20); POTASSIUM 3.7 mmol/L (3.5-5.1)
[2017-07-14 07:03] VITALS: BP 147/73; PULSE 70; TEMP 36.8; O2SAT 95
--- NOTE | 2017-07-14 08:46 | ECHOCARDIOGRAM REPORT ---
*NOTICE TO RECEIVING [employer] This information is strictly Confidential and protected under [place] law. [place] law prohibits you from making any further disclosure of this information unless further disclosure is expressly permitted by the written consent of the person to whom it pertains or is authorized by law. A general authorization for the release of medical or other information is not sufficient for this purpose. Hospital accepts no responsibility if the information is made available to any other person, INCLUDING THE PATIENT. Interpretation Summary * Name: DANIS JOHNSON Study Date: 07/14/2017 07:35 AM BP: 115/65 mmHg * Patient Location: C.2T\S\S234\S\1 HR: 81 * : 1940 (M/d/yyyy) Gender: Female Height: 63 in * Age: 77 yrs Ethnicity: CA Weight: 122 lb * Ordering Physician: Izabela Patrick * Performed By: Mi Jaramillo * * Reason For Study: CHEST PAIN * BSA: 1.6 m2 * -- Conclusions -- * Normal LV chamber size and wall thickness. * Normal LV systolic function, EF 65-70%. * No segmental left ventricular wall motion abnormalities are noted. * Grade II diastolic dysfunction. * Aortic valve sclerosis moderate, without significant aortic valvular stenosis. * Small loculated anterior pericardial effusion. Procedure Details * A complete two-dimensional transthoracic echocardiogram was performed (2D, M-mode, Doppler and color flow Doppler). Left Ventricle * The left ventricle is normal in size. * There is normal left ventricular wall thickness. * Ejection Fraction = 65-70%. * Left ventricular systolic function is normal. * No segmental left ventricular wall motion abnormalities are noted. * The left ventricular wall motion is normal. Right Ventricle * The right ventricular cavity size is normal (basal dimension <4.2 cm in right ventricular apical 4-chamber view). * The right ventricular systolic function is normal as assessed by tricuspid annular plane systolic excursion (TAPSE) (normal >1.5 cm). Atria * The left atrial size is normal. * Right atrial size is normal. * No ASD detected; PFO is not assessed. Mitral Valve * The mitral valve is normal in structure and function. Tricuspid Valve * The tricuspid valve is normal in structure and function. Aortic Valve * The aortic valve is not well visualized. * Aortic valve sclerosis moderate, without significant aortic valvular stenosis. Pulmonic Valve * The pulmonary valve is not well seen, but the Doppler examination is normal without significant regurgitation or stenosis. Great Vessels * The aortic root and proximal ascending aorta are normal sized. Pericardium/Pleural * Small pericardial effusion. * A loculated pericardial effusion is noted. Left Ventricular Diastolic Function * Diastolic dysfunction, Grade II (pseudonormalization pattern). MMode 2D Measurements and Calculations IVSd 0.98 cm IVSs 1.4 cm LVIDd 4.0 cm LVIDs 2.5 cm LVPWd 0.93 cm LVPWs 1.8 cm IVS/LVPW 1.0 FS 37.6 % EDV(Teich) 68.0 ml ESV(Teich) 21.6 ml EF(Teich) 68.3 % EDV(cubed) 61.8 ml ESV(cubed) 15.0 ml EF(cubed) 75.7 % % IVS thick 45.0 % % LVPW thick 91.4 % LV mass(C)d 116.8 grams LV mass(C)dI 74.5 grams/m\S\2 LV mass(C)s 139.5 grams LV mass(C)sI 89.0 grams/m\S\2 CO(Teich) 3.2 l/min CI(Teich) 2.0 l/min/m\S\2 SV(Teich) 46.5 ml SI(Teich) 29.7 ml/m\S\2 CO(cubed) 3.2 l/min CI(cubed) 2.0 l/min/m\S\2 SV(cubed) 46.8 ml SI(cubed) 29.8 ml/m\S\2 ACS 1.5 cm LA dimension 2.4 cm asc Aorta Diam 3.3 cm LVOT diam 2.0 cm LVOT area 3.0 cm\S\2 LVAd ap4 22.4 cm\S\2 LVLd ap4 6.7 cm EDV(MOD-sp4) 62.8 ml LVAs ap4 11.3 cm\S\2 LVLs ap4 5.1 cm ESV(MOD-sp4) 20.4 ml EF(MOD-sp4) 67.5 % LVAd ap2 16.3 cm\S\2 LVLd ap2 5.9 cm EDV(MOD-sp2) 37.8 ml LVAs ap2 8.7 cm\S\2 LVLs ap2 4.9 cm ESV(MOD-sp2) 13.3 ml EF(MOD-sp2) 64.8 % CO(MOD-sp4) 2.9 l/min CI(MOD-sp4) 1.8 l/min/m\S\2 SV(MOD-sp4) 42.4 ml SI(MOD-sp4) 27.1 ml/m\S\2 CO(MOD-sp2) 1.7 l/min CI(MOD-sp2) 1.1 l/min/m\S\2 SV(MOD-sp2) 24.5 ml SI(MOD-sp2) 15.6 ml/m\S\2 Doppler Measurements and Calculations MV E max marvel 109.6 cm/sec MV A max marvel 102.8 cm/sec MV E/A 1.1 MV dec time 0.22 sec Ao V2 max 165.6 cm/sec Ao max PG 11.0 mmHg Ao max PG (full) 6.7 mmHg FLOR(V,A) 1.9 cm\S\2 FLOR(V,D) 1.9 cm\S\2 LV V1 max PG 4.3 mmHg LV V1 max 103.3 cm/sec PA V2 max 84.9 cm/sec PA max PG 2.9 mmHg PI end-d marvel 114.0 cm/sec
[2017-07-14] MEDS ORDERED: SODIUM CHLORIDE 0.9% 1000ML 1,000 ML IV SCH (10:15)
[2017-07-14] MEDS: PANTOprazole SOD 40 MG TAB PO SCH (11:05)
[2017-07-14] MEDS: POLYETHYLENE (MIRALAX) 17 GM PACK PO SCH (11:05)
[2017-07-14] MEDS: DOCUSATE SODIUM 100 MG CAP PO SCH ×3 (11:05→21:00)
[2017-07-14] MEDS: CIPROFLOXACIN / D5W 400 MG in PREMIXED IN D5W 200 ML IV SCH ×2 (11:06→22:10)
[2017-07-14 11:07] VITALS: BP 149/66; PULSE 69; TEMP 37.2; O2SAT 97
[2017-07-14 13:23] VITALS: BP 149/66; PULSE 69; TEMP 37.2; O2SAT 97
[2017-07-14] MEDS ORDERED: NURSING VERBAL MED ORDER ONE (14:30)
[2017-07-14] MEDS ORDERED: hydrOXYzine HCL 25 MG TAB PO ONE (14:45)
[2017-07-14 16:11] VITALS: BP 135/70; PULSE 67; TEMP 36.7; O2SAT 97
--- NOTE | 2017-07-14 16:37 | Progress Note ---
Medicine Progress Note Date & Time of Visit: Jul 14, 2017 at 16:22. (Izabela Patrick PA-C) Subjective Patient reports being hungry, ready to try regular diet. Took in broth and soda this morning. Her abdominal pain is controlled. Had 1 episode of rectal bleeding yesterday, approx 1 tablespoon, but no bleeding today. She reports not passing stool for weeks. Feels wobbly ambulating across the room. Denies nausea , vomiting. No further chest pain. Denies SOB today, however was having MAY at home for past 1-2 months while doing laundry. Reports itchy rash on her back since yesterday. (Izabela Patrick PA-C) Objective Last 8 Hrs Date Time Temp Pulse Resp B/P (MAP) Pulse Ox O2 Delivery O2 Flow Rate FiO2 07/14/17 16:11 36.7 67 18 135/70 (91) 97 Room Air 07/14/17 13:23 37.2 69 20 97 07/14/17 12:00 Room Air 07/14/17 11:07 37.2 69 20 149/66 (93) 97 Room Air Physical Exam: General- pleasant alert 77 year old female, lying in bed, no distress Eyes- anicteric ENT-hearing intact Neck-trachea midline Lungs-CTA, no wheezing, rhonchi, or crackles Heart-regular rate and rhythm, no murmur Abdomen-soft, diffuse abdominal tenderness, bowel sounds normal Extremities- no deformity, no edema, no calf tenderness Neuro- alert, oriented x 3, affect normal Skin- maculopapular rash diffusely on her back, no distribution on the anterior trunk or extremities Laboratory Results: Last 24 Hours Test 07/14/17 05:15 White Blood Count 7.92 K/uL Red Blood Count 3.79 M/uL Hemoglobin 11.6 g/dL Hematocrit 35.8 % Mean Corpuscular Volume 94.5 fL Mean Corpuscular Hemoglobin 30.6 pg Mean Corpuscular Hemoglobin Concent 32.4 g/dl RDW Standard Deviation 49.5 fL RDW Coefficient of Variation 14.3 % Platelet Count 185 K/uL Mean Platelet Volume 10.6 fL Sodium Level 143 mmol/L Potassium Level 3.7 mmol/L Chloride Level 110 mmol/L Carbon Dioxide Level 30 mmol/L Anion Gap 3.0 mmol/L Blood Urea Nitrogen 8 mg/dl Creatinine 0.58 mg/dl Est Creatinine Clear Calc Drug Dose 66.1 ml/min Estimated GFR () 102.3 Estimated GFR (Non- 88.3 BUN/Creatinine Ratio 13.8 Random Glucose 99 mg/dl Calcium Level 8.3 mg/dl (Izabela Patrick PA-C) Assessment & Plan RECTAL BLEEDING Presented with bright red blood per rectum, likely lower GI bleeding CT a/p consistent with ischemic colitis Hg slightly downtrending (13.4-> 11.6 over 3 days), may be partially dilutional due to IVF's No further bleeding today Continue IV Cipro and Flagyl, per GI will need 10 day course to prevent bacterial translocation across damaged colonic mucosa Advance to regular diet Pain management with PRN IV morphine GI consulted; appreciate input Bowel regimen ordered by GI Plan for outpatient colonoscopy in 6 weeks CHEST PAIN/ MAY Had chest pain and MAY x 1-2 months, currently chest pain free No history of CAD; prior stress echo 03/26/2016- "The stress echo is negative for inducible ischemia. No arrhythmias. Normal HR and BP response to exercise. Markedly reduced exercise tolerance. At rest, normal LV chamber size with mild concentric LVH. Normal LV systolic function without regional wall motion abnormality, EF 55-60%. Grade I diastolic dysfunction. No significant valvular pathology." Troponin negative x 2 EKG showed no ischemic changes Not given aspirin due to GIB Telemetry monitoring showed no arrhythmias- transferred to med/ surg today TTE- Normal LV chamber size and wall thickness. * Normal LV systolic function, EF 65-70%. * No segmental left ventricular wall motion abnormalities are noted. * Grade II diastolic dysfunction. * Aortic valve sclerosis moderate, without significant aortic valvular stenosis. * Small loculated anterior pericardial effusion. Consider outpatient stress test RASH May be due to contact dermatitis from bedding? PRN antihistamine ordered Patient to try wearing clothes from home DVT PROPHYLAXIS SCD's due to GIB CODE STATUS Full code no mech ventilation as per admitting provider's discussion with patient DISPOSITION Transferred to med/ surg today Follows with Dr. Ortiz for primary care Patient seen in collaboration with Dr. Paul. Please see her addendum. Current Inpatient Medications: Current Inpatient Medications Medications (Trade) Dose Ordered Sig/Deison Route Start Time Stop Time Status Last Admin Dose Admin Ondansetron HCl (Zofran Inj) 4 mg Q6H PRN IV 07/12/17 08:45 08/11/17 08:44 Metronidazole 500 mg/Prmx 100 ml @ 100 mls/hr Q8H IV 07/12/17 18:00 07/22/17 17:59 07/14/17 11:06 100 MLS/HR Ciprofloxacin/ Dextrose 400 mg/ Prmx 200 ml @ 100 mls/hr Q12@1000,2200 IV 07/12/17 10:30 07/22/17 10:29 07/14/17 11:06 100 MLS/HR Pantoprazole Sodium (Protonix Tab) 40 mg QAM PO 07/13/17 09:00 08/12/17 08:59 07/14/17 11:05 40 MG Morphine Sulfate (MoRPHine SULFATE INJ) 1 mg Q4HWA PRN IV 07/12/17 17:00 07/26/17 16:59 07/13/17 20:13 1 MG Polyethylene (Miralax Powder Packet) 17 gm DAILY PO 07/14/17 09:00 08/13/17 08:59 07/14/17 11:05 17 GM Docusate Sodium (coLACE CAP) 100 mg TID PO 07/13/17 14:00 08/12/17 13:59 07/14/17 13:53 100 MG Zolpidem Tartrate (Ambien Tab) 2.5 mg HS PRN PO 07/13/17 22:00 08/12/17 21:59 Sodium Chloride 1,000 ml @ 100 mls/hr Q10H IV 07/14/17 10:15 07/15/17 06:14 07/14/17 11:08 100 MLS/HR Diphenhydramine HCl (Benadryl Cap) 25 mg Q6H PRN PO 07/14/17 12:00 08/13/17 11:59 (Izabela Patrick PA-C) ADDENDUM: Asking for food since yesterday and very hungry. Hemodynamically stable and H/H stable overnight despite some bleeding. May be the residual blood moving through her system. Cont supportive care and abx. Transfer to floor. DO Humberto (Lisseth Paul DO)
[2017-07-15] VITALS: BP 126/79; PULSE 71; TEMP 37; O2SAT 96
[2017-07-15] MEDS: METRONIDAZOLE / NSS 500 MG in PREMIXED NSS 100 ML IV SCH ×2 (02:30→10:09)
[2017-07-15 05:42] LABS: HEMATOCRIT 36.9 % (37-47); MEAN CELL VOLUME 93.7 fL (80-100); MEAN CORPUSCULAR HGB CONC 33.1 g/dl (32-36); MEAN PLATELET VOLUME 10.5 fL (7.4-10.4); PLATELET COUNT 193 K/uL (130-400); RED BLOOD COUNT 3.94 M/uL (4.2-5.4); WHITE BLOOD COUNT 6.17 K/uL (4.8-10.8)
[2017-07-15 06:15] LABS: BUN/CREATININE RATIO 14.6 (10-20); CALCIUM 8.4 mg/dl (8.5-10.1); CREATININE 0.71 mg/dl (0.60-1.20); POTASSIUM 3.8 mmol/L (3.5-5.1)
[2017-07-15 07:42] VITALS: BP 124/67; PULSE 61; TEMP 36.8; O2SAT 95
[2017-07-15] MEDS: MoRPHine SULFATE 2 MG/ML CARP IV PRN (08:20)
[2017-07-15] MEDS: PANTOprazole SOD 40 MG TAB PO SCH (08:21)
[2017-07-15] MEDS: DOCUSATE SODIUM 100 MG CAP PO SCH ×2 (08:21→13:53)
[2017-07-15] MEDS: POLYETHYLENE (MIRALAX) 17 GM PACK PO SCH (08:21)
[2017-07-15] MEDS: CIPROFLOXACIN / D5W 400 MG in PREMIXED IN D5W 200 ML IV SCH (10:10)
[2017-07-15] MEDS ORDERED: BND25X PO (11:34)
[2017-07-15] MEDS ORDERED: METR-163 PO (11:34)
[2017-07-15] MEDS ORDERED: CPR500 PO ×3 (11:34→11:51)
[2017-07-15] MEDS ORDERED: MRLP17 PO ×2 (11:34→11:53)
[2017-07-15] MEDS ORDERED: PRT40 PO (11:34)
[2017-07-15] MEDS ORDERED: CLC100 PO (11:34)
[2017-07-15] MEDS ORDERED: MRLP17X PO (11:39)
--- NOTE | 2017-07-15 12:23 | Progress Note ---
Medicine Progress Note Date & Time of Visit: Jul 15, 2017 at 12:09. (Izabela Patrick PA-C) Subjective Patient reports feeling well this morning. She is tolerating regular diet since lunch yesterday (chicken, rice, meatloaf). Abdominal pain is controlled. Passed a tablespoon of blood per rectum 3 times yesterday. One episode yesterday included a small amount of stool. No bleeding or bowel movement today. No dizziness, weakness, N/V, diarrhea, difficulty voiding. She is ambulating normally and was cleared to go home by PT. States her chronic back pain was bothering her this morning. Continues with itchy rash on her back despite wearing clothes from home, however Benadryl helps the itching. (Izabela Patrick PA-C) Objective Last 8 Hrs Date Time Temp Pulse Resp B/P (MAP) Pulse Ox O2 Delivery O2 Flow Rate FiO2 07/15/17 08:00 Room Air 07/15/17 07:42 36.8 61 16 124/67 (86) 95 Room Air Physical Exam: General- pleasant alert 77 year old female, lying in bed, no distress Eyes- anicteric ENT-hearing intact Neck-trachea midline Lungs-CTA, no wheezing, rhonchi, or crackles Heart-regular rate and rhythm, no murmur Abdomen-soft, abdomen is nontender, bowel sounds normal Extremities- no deformity, no edema, no calf tenderness Neuro- alert, oriented x 3, affect normal Skin- maculopapular rash diffusely on her back, unchanged from yesterday Laboratory Results: Last 24 Hours Test 07/15/17 05:12 White Blood Count 6.17 K/uL Red Blood Count 3.94 M/uL Hemoglobin 12.2 g/dL Hematocrit 36.9 % Mean Corpuscular Volume 93.7 fL Mean Corpuscular Hemoglobin 31.0 pg Mean Corpuscular Hemoglobin Concent 33.1 g/dl RDW Standard Deviation 48.7 fL RDW Coefficient of Variation 14.1 % Platelet Count 193 K/uL Mean Platelet Volume 10.5 fL Sodium Level 142 mmol/L Potassium Level 3.8 mmol/L Chloride Level 110 mmol/L Carbon Dioxide Level 29 mmol/L Anion Gap 3.0 mmol/L Blood Urea Nitrogen 10 mg/dl Creatinine 0.71 mg/dl Est Creatinine Clear Calc Drug Dose 54.0 ml/min Estimated GFR () 94.6 Estimated GFR (Non- 81.6 BUN/Creatinine Ratio 14.6 Random Glucose 109 mg/dl Calcium Level 8.4 mg/dl (Izabela Patrick PA-C) Assessment & Plan RECTAL BLEEDING Presented with bright red blood per rectum, likely lower GI bleeding CT a/p consistent with ischemic colitis Hg has been stable No further bleeding today Treated with IV Cipro and Flagyl, will be discharged on PO Cipro/ Flagyl to complete 10 day course recommended by GI to prevent bacterial translocation across damaged colonic mucosa Tolerating regular diet Started on pantoprazole, Miralax, and Colace GI consulted (Dr. Lozano), appreciate input; f/u with GI as outpatient Plan for outpatient colonoscopy in 6 weeks CHEST PAIN/ MAY Had chest pain and MAY x 1-2 months, currently chest pain free No history of CAD; prior stress echo 03/26/2016- "The stress echo is negative for inducible ischemia. No arrhythmias. Normal HR and BP response to exercise. Markedly reduced exercise tolerance. At rest, normal LV chamber size with mild concentric LVH. Normal LV systolic function without regional wall motion abnormality, EF 55-60%. Grade I diastolic dysfunction. No significant valvular pathology." Troponin negative x 2 EKG showed no ischemic changes Not given aspirin due to GIB Telemetry monitoring showed no arrhythmias- transferred to med/ surg TTE- Normal LV chamber size and wall thickness. * Normal LV systolic function, EF 65-70%. * No segmental left ventricular wall motion abnormalities are noted. * Grade II diastolic dysfunction. * Aortic valve sclerosis moderate, without significant aortic valvular stenosis. * Small loculated anterior pericardial effusion. Case discussed with cardiology- recommended against inpatient stress test in setting of ischemic bowel Needs cardiology referral for outpatient stress test RASH May be due to contact dermatitis from bedding? PRN antihistamine ordered; pt now wearing clothes from home DVT PROPHYLAXIS SCD's due to GIB CODE STATUS Full code no mech ventilation as per admitting provider's discussion with patient DISPOSITION Discharge to home today (cleared by PT) Follows with Dr. Ortiz for primary care Patient seen in collaboration with Dr. Paul. Please see her addendum. Current Inpatient Medications: Current Inpatient Medications Medications (Trade) Dose Ordered Sig/Edison Route Start Time Stop Time Status Last Admin Dose Admin Ondansetron HCl (Zofran Inj) 4 mg Q6H PRN IV 07/12/17 08:45 08/11/17 08:44 Metronidazole 500 mg/Prmx 100 ml @ 100 mls/hr Q8H IV 07/12/17 18:00 07/22/17 17:59 07/15/17 10:09 100 MLS/HR Ciprofloxacin/ Dextrose 400 mg/ Prmx 200 ml @ 100 mls/hr Q12@1000,2200 IV 07/12/17 10:30 07/22/17 10:29 07/15/17 10:10 100 MLS/HR Pantoprazole Sodium (Protonix Tab) 40 mg QAM PO 07/13/17 09:00 08/12/17 08:59 07/15/17 08:21 40 MG Morphine Sulfate (MoRPHine SULFATE INJ) 1 mg Q4HWA PRN IV 07/12/17 17:00 07/26/17 16:59 07/15/17 08:20 1 MG Polyethylene (Miralax Powder Packet) 17 gm DAILY PO 07/14/17 09:00 08/13/17 08:59 07/15/17 08:21 17 GM Docusate Sodium (coLACE CAP) 100 mg TID PO 07/13/17 14:00 08/12/17 13:59 07/15/17 08:21 100 MG Zolpidem Tartrate (Ambien Tab) 2.5 mg HS PRN PO 07/13/17 22:00 08/12/17 21:59 Diphenhydramine HCl (Benadryl Cap) 25 mg Q6H PRN PO 07/14/17 12:00 08/13/17 11:59 (Izabela Patrick PA-C)
--- NOTE | 2017-07-15 13:05 | Discharge Instructions ---
Discharge Instructions Date of Service Jul 15, 2017. Admission Reason for Admission: Colitis, Gi Bleed Discharge Discharge Diagnosis / Problem: Rectal bleeding, Ischemic colitis, Chest pain, Shortness of Breath Discharge Goals Goal(s): Improve disease control Activity Recommendations Activity Limitations: resume your previous activity . Instructions / Follow-Up Instructions / Follow-Up You were admitted for rectal bleeding and found to have colitis. You will need to continue oral antibiotics (ciprofloxacin and metronidazole) through 07/21/17. You were started on pantoprazole for stomach acid. You were started on Miralax and Colace for constipation. Please follow up with [facility] gastroenterology, Dr. Lozano ([phone]). You will need outpatient colonoscopy in 6 weeks. You were also evaluated for chest pain and shortness of breath. There was no sign of heart attack on your testing in the hospital. Please obtain a referral from your primary care provider to see cardiology for outpatient stress testing. You have a follow up appointment with Dr. Hortencia Ortiz on 07/22/2017. It was a pleasure taking care of you! Call if you have any questions or problems. You can reach a [facility] hospitalist on duty at [facility] 24 hours a day by calling [phone]. Take care of yourself. Izabela Patrick PA-C [facility] Medicine Current Hospital Diet Patient's current hospital diet: Regular Diet Discharge Diet Recommended Diet: Regular Diet Pending Studies Studies pending at discharge: no Medical Emergencies . Who to Call and When: Medical Emergencies: If at any time you feel your situation is an emergency, please call 911 immediately. . Non-Emergent Contact Non-Emergency issues call your: Primary Care Provider Please call non-emergent contact if you develop worsening abdominal pain or rectal bleeding. . . "Provider Documentation" section prepared by Izabela Patrick. . VTE Core Measure Inpt VTE Proph given/why not?: SCD's
[2017-07-15 13:16] VITALS: BP 124/67; PULSE 61; TEMP 36.8; O2SAT 95
[2017-07-15 13:31] VITALS: BP 124/67; PULSE 61; TEMP 36.8; O2SAT 95
--- NOTE | 2017-07-15 16:55 | Discharge Summary ---
Discharge Summary Date of Service Jul 15, 2017. Discharge Summary Admission Date: Jul 12, 2017 at 08:47 Discharge Date: Jul 15, 2017 Discharge Disposition: Home Principal Diagnosis: Rectal Bleeding, Ischemic Colitis, Chest pain, MAY Procedures: TTE- Normal LV chamber size and wall thickness. * Normal LV systolic function, EF 65-70%. * No segmental left ventricular wall motion abnormalities are noted. * Grade II diastolic dysfunction. * Aortic valve sclerosis moderate, without significant aortic valvular stenosis. * Small loculated anterior pericardial effusion. Consultations: GI Pending Studies/Follow-Up: Follow up with [facility] gastroenterology, Dr. Lozano. Outpatient colonoscopy in 6 weeks. Cardiology referral for outpatient stress testing. Medication Reconciliation New Medications: Ciprofloxacin (Ciprofloxacin HCl) 500 Mg Tab 500 MG PO BID for 7 Days, #14 TABS Metronidazole (Flagyl) 500 Mg Tab 500 MG PO TID for 7 Days, #20 TAB Diphenhydramine HCl (Diphenhydramine HCl) 25 Mg Cap 25 MG PO Q6H PRN for rash/itching for 30 Days, #120 CAP Docusate Sodium (Docusate Sodium) 100 Mg Cap 100 MG PO TID for 30 Days, #90 CAP Pantoprazole (Pantoprazole Sodium) 40 Mg Tab 40 MG PO QAM for 30 Days, #30 TAB Polyethylene (Miralax) 17 Gm Pow 17 GM PO DAILY for 30 Days, #30 BTL Admission Information HPI (per Admitting provider): 77 year old female with no significant PMH and not taking any prescription med presents to the Emergency Room with complaints of bright red rectal bleeding associated with abdominal pain. Pt said that last night she went out to eat with her friends. she said late night she felt sick. she said that she started to vomiting. She had many episodes of non bloody vomiting. She said that she started to have multiple episode of bloody diarrhea associated with cramping abdominal pain located in the mid abdomen. Pain is non radiated, constant, grade 6 out 10. Alleviated with the pain med she was given in the ER. Pt said that every few months she sometimes develops some abdominal pain and diarrhea but never seen blood in her stool. she said that she was feeling a little dizzy last night and chest discomfort in the mid epigastric area. She said that she believes that she is due for her routine colonoscopy. Last episodes of vomiting was last night. Last bloody episodes of diarrhea was this morning. As per ER team patient had bright red blood from the rectum. Currently denies any chest pain, palpitation, dizziness, fever and sob. Physical Exam (per Admitting): General Appearance: WD/WN, no apparent distress Head: normocephalic, atraumatic Eyes: PERRL, EOMI ENT: normal ENT inspection Neck: no JVD Respiratory/Chest: normal breath sounds, no respiratory distress, no accessory muscle use Cardiovascular: regular rate, rhythm, no JVD Abdomen/GI: normal bowel sounds, + tenderness Back: no CVA tenderness Extremities/Musculoskelatal: no calf tenderness Neurologic/Psych: no motor/sensory deficits, alert, oriented x 3 Skin: warm/dry, no rash Hospital Course Patient presented to ER on 07/12/17 for bright red rectal bleeding, abdominal pain , and vomiting. ER team noted bright red blood from the rectum. Hg has been stable throughout hospitalization. CT a/p was consistent with ischemic colitis. GI (Dr. Lozano) was consulted. She was treated with IV Cipro and Flagyl and will be discharged on PO Cipro/ Flagyl. 10 day course of antibiotics recommended by GI to prevent bacterial translocation across damaged colonic mucosa. Bowel regimen was added by GI. Has produced stool x 1. On discharge pain is controlled and she is tolerating regular diet. Patient instructed to follow up with GI as outpatient. She will need outpatient colonoscopy in 6 weeks. Patient also reported chest pain and MAY x 1-2 months prior to arrival. There was no evidence of ACS- troponin was negative x 2, EKG showed no ischemic changes, no arrhythmias noted on telemetry, no wall motion abnormalities. TTE showed LV EF of 65-70%, grade II diastolic dysfunction, moderate aortic valve sclerosis, small loculated anterior pericardial effusion. Case was discussed with cardiology who recommended against inpatient stress test in setting of ischemic bowel. Patient will need cardiology referral for outpatient stress test. Patient also developed maculopapular rash on her back during hospitalization, possibly secondary to contact dermatitis from bedding, and was given PRN antihistamines. . Total time spent on discharge = 60 minutes This includes examination of the patient, discharge planning, medication reconciliation, and communication with other providers. Discharge Instructions Discharge Instructions Date of Service Jul 15, 2017. Admission Reason for Admission: Colitis, Gi Bleed Discharge Discharge Diagnosis / Problem: Rectal bleeding, Ischemic colitis, Chest pain, Shortness of Breath Discharge Goals Goal(s): Improve disease control Activity Recommendations Activity Limitations: resume your previous activity . Instructions / Follow-Up Instructions / Follow-Up You were admitted for rectal bleeding and found to have colitis. You will need to continue oral antibiotics (ciprofloxacin and metronidazole) through 07/21/17. You were started on pantoprazole for stomach acid. You were started on Miralax and Colace for constipation. Please follow up with [facility] gastroenterology, Dr. Lozano ([phone]). You will need outpatient colonoscopy in 6 weeks. You were also evaluated for chest pain and shortness of breath. There was no sign of heart attack on your testing in the hospital. Please obtain a referral from your primary care provider to see cardiology for outpatient stress testing. You have a follow up appointment with Dr. Hortencia Ortiz on 07/22/2017. It was a pleasure taking care of you! Call if you have any questions or problems. You can reach a [facility] hospitalist on duty at [facility] 24 hours a day by calling [phone]. Take care of yourself. Izabela Patrick PA-C [facility] Medicine Current Hospital Diet Patient's current hospital diet: Regular Diet Discharge Diet Recommended Diet: Regular Diet Pending Studies Studies pending at discharge: no Medical Emergencies . Who to Call and When: Medical Emergencies: If at any time you feel your situation is an emergency, please call 911 immediately. Non-Emergent Contact Non-Emergency issues call your: Primary Care Provider Please call non-emergent contact if you develop worsening abdominal pain or rectal bleeding. . "Provider Documentation" section prepared by Izabela Patrick. VTE Core Measure Inpt VTE Proph given/why not?: SCD's Additional Copies To Hortencia Ortiz M.D.
[2017-08-16] MEDS ORDERED: MISCCAP80 PO (08:25)
[2017-08-16] MEDS ORDERED: CALC-51 PO (08:25)
[2017-08-16] MEDS ORDERED: CHOL100010 PO (08:25)
== END 2017-07-15 14:10 | disposition home or self-care (01) | DRG 394 ==
LOC: C.EDB 04:46 → C.2T 08:47 → UNDOADMIN 08:56 → C.2T 08:56 → ENRESERV 09:21 → C.MED 07-14 13:48
PROVIDERS: ADMIT Internal Medicine; ATTEND Hospitalist
DX: K55.9 Vascular disorder of intestine, unspecified (principal); K62.5 Hemorrhage of anus and rectum; L25.9 Unspecified contact dermatitis, unspecified cause; R07.89 Other chest pain; R06.09 Other forms of dyspnea; K59.00 Constipation, unspecified; Z87.891 Personal history of nicotine dependence; Z87.442 Personal history of urinary calculi; Z84.1 Family history of disorders of kidney and ureter

== ENCOUNTER → 2017-08-24 | Day surgery (SDC) | payer OTHER ==
[2017-08-16 08:25] VITALS: Ht 158.8 cm; Wt 52.3 kg
[~2017-08-24] VITALS: Ht 158.8 cm; Wt 52.3 kg
[~2017-08-24] MED LIST changes: -ALPR-411 PO; -ANT25 PO; -ATOR10TA88 PO; -BENZ100C6 PO; -BUSP15TA70 PO; -CALC-342 PO; +CALC-51 PO; -CARB25TA12 PO; -CLX20 PO; -DENO60SO SQ; -FLUT0.0529 NAE; +LIDOCAINE HCL 2% 2 ML VIAL (20MG/ML) ONE; -LORA10CA2 PO; -MAGN200T3 PO; +MISCCAP80 PO; -OMEG10007 PO; -PROP10TA7 PO; +PROPOFOL IV EMULSION 10 MG/ML 20 ML VIAL IV ONE; +SODIUM CHLORIDE 0.9% 500ML 500 ML IV ONE
--- NOTE | 2017-08-24 12:19 | Endo History and Physical ---
History & Physical Date of Service: Aug 24, 2017. Chief Complaint: Ischemic Colitis Referring Physician: Hortencia Ortiz History of Present Illness 77 yo CF who presents for colonoscopy secondary to history of Ischemic colitis. Past Surgical History Hx Cardiac Surgery: No Hx Internal Defibrillator: No Hx Pacemaker: No Hx Abdominal Surgery: Yes (TAHBSO, APPY) Hx of Implantable Prosthesis: No Hx Post-Op Nausea and Vomiting: No Hx Cancer Surgery: No Hx Thoracic Surgery: No Hx Orthopedic: Yes (LEFT CTR, CERVICAL DISCECTOMY, LUMBAR FUSION) Hx Urinary Tract Surgery: Yes (CYSTOSCOPY-KIDNEY STONE REMOVAL) Family History None Social History Smoking Status: Former Smoker Hx Substance Use: No Hx Alcohol Use: No Allergies Coded Allergies: Oxycodone (Verified Allergy, Unknown, nausea, 08/24/17) Sulfa Antibiotics (Verified Allergy, Unknown, VOMITTING, 08/24/17) Current Medications Reported Home Medications Medications Dose Route/Sig Max Daily Dose Days Date Category Calcium (Calcium Carbonate-Vitamin D) 1 Tab Tab 250 Mg PO QAM 08/16/17 Reported Probiotic (Probiotic Product) 1 Cap Cap 1 Cap PO QAM 08/16/17 Reported Vitamin D (Cholecalciferol) 1,000 Unit Tab 1 Tab PO QAM 08/16/17 Reported Vital Signs Weight (Kilograms): 52.27 Height (Feet): 5 Height (Inches): 2.5 Date Time Temp Pulse Resp B/P (MAP) Pulse Ox O2 Delivery O2 Flow Rate FiO2 08/24/17 11:32 36.5 83 18 122/60 (80) 98 Room Air Physical Exam General Appearance: WD/WN, no apparent distress Respiratory/Chest: Auscultation: breath sounds normal Cardiovascular: Heart Auscultation: RRR Abdomen: Bowel Sounds: normal Inspection & Palpation: soft, non-distended, no tenderness, guarding & rebound Assessment and Plan Assessment: 77 yo CF who presents for colonoscopy secondary to history of Ischemic colitis. Plan: Proceed with colonoscopy.
--- NOTE | 2017-08-24 12:47 | Discharge Instructions ---
Endoscopy Patient Instructions Date / Procedure(s) Performed Aug 24, 2017. Colonoscopy Allergy Information Coded Allergies: Oxycodone (Verified Allergy, Unknown, nausea, 08/24/17) Sulfa Antibiotics (Verified Allergy, Unknown, VOMITTING, 08/24/17) Discharge Date / Findings Aug 24, 2017. Internal hemorrhoids Medication Instructions OK to resume all medications today as prescribed Reported Home Medications Medications Dose Route/Sig Max Daily Dose Days Date Category Calcium (Calcium Carbonate-Vitamin D) 1 Tab Tab 250 Mg PO QAM 08/16/17 Reported Probiotic (Probiotic Product) 1 Cap Cap 1 Cap PO QAM 08/16/17 Reported Vitamin D (Cholecalciferol) 1,000 Unit Tab 1 Tab PO QAM 08/16/17 Reported Provider Instructions Activity Restrictions - No exercising or heavy lifting for 24 hours. - Do not drink alcohol the day of the procedure. - Do not drive a car or operate machinery until the day after the procedure. - Do not make any important decisions or sign important papers in 24 hours after the procedure. Following Day: - Return to full activity which may include returning to work/school. Diet Start your diet with liquids and light foods (jello, soup, juice, toast). Then eat your usual diet if not nauseated. Treatment For Common After Affects For mild abdominal pain, bloating, or excessive gas: - Rest - Eat lightly - Lie on right side Follow-Up Information Follow-up with Hortencia Ortiz as scheduled Anesthesia Information What You Should Know You have had a procedure that required some medicine to reduce anxiety and discomfort. This treatment is called moderate sedation. After receiving the treatment, you may be sleepy, but you will be able to breathe on your own. The effects of the treatment may last for several hours. Follow these instructions along with Activity/Diet recommendations noted above: * Do NOT do anything where dizziness or clumsiness would be dangerous. * Rest quietly at home today, then you can be up and about tomorrow. * Have a responsible person stay with you the rest of today. * You may have had an I.V. today. If so, you may take the dressing off later today. Recommendations Call your doctor if: * Trouble breathing * Continuous vomiting for more than 24 hours * Temperature above 101 degrees * Severe abdominal pain or bloating * Pain not relieved by pain medicine ordered * There is increased drainage or redness from any incision * A large amount of rectal bleeding greater than 2-3 tablespoons. (If you had a polyp/s removed or have hemorrhoids, a small amount of blood - from the rectum is to be expected.) * You have any unanswered questions or concerns. IN THE EVENT OF A SERIOUS EMERGENCY, GO TO THE NEAREST EMERGENCY ROOM Your discharge instructions were prepared by provider Nitin Lozano. Patient Instructions Signature Page Armida Johnson Patient (or Guardian) Signature/Date: I have read and understand the instructions given to me by my caregivers. Caregiver/RN/Doctor Signature/Date: The above-named patient and/or guardian has received patient instructions on this date. + Original Patient Signature Page (only) stays with chart. Please make copy for patient.
--- NOTE | 2017-08-24 12:54 | GI REPORT ---
Procedure Date: 08/24/2017 11:54 AM Procedure: Colonoscopy Indications: Follow-up of acute ischemic colitis Medicines: Monitored Anesthesia Care Complications: No immediate complications. Estimated Blood Loss: Estimated blood loss: none. Procedure: Pre-Anesthesia Assessment: - Prior to the procedure, a History and Physical was performed, and patient medications and allergies were reviewed. The patient's tolerance of previous anesthesia was also reviewed. The risks and benefits of the procedure and the sedation options and risks were discussed with the patient. All questions were answered, and informed consent was obtained. Prior Anticoagulants: The patient has taken no previous anticoagulant or antiplatelet agents. ASA Grade Assessment: II - A patient with mild systemic disease. After reviewing the risks and benefits, the patient was deemed in satisfactory condition to undergo the procedure. After I obtained informed consent, the scope was passed under direct vision. Throughout the procedure, the patient's blood pressure, pulse, and oxygen saturations were monitored continuously. The scope was introduced through the anus and advanced to the terminal ileum. The colonoscopy was performed without difficulty. The patient tolerated the procedure well. The quality of the bowel preparation was good. The terminal ileum, ileocecal valve, appendiceal orifice, and rectum were photographed. Findings: Non-bleeding internal hemorrhoids were found during retroflexion. The hemorrhoids were small. The exam was otherwise without abnormality. Impression: - Non-bleeding internal hemorrhoids. - The examination was otherwise normal. - No specimens collected. Recommendation: - Resume previous diet. - Continue present medications. - No repeat colonoscopy due to age and the absence of advanced adenomas. - Return to primary care physician as previously scheduled. Nitin Lozano, 08/24/2017 12:54:02 PM This report has been signed electronically. Note Initiated On: 08/24/2017 11:54 AM I attest to the content of the Intraoperative Record and orders documented therein, exceptions below
--- NOTE | 2017-08-24 13:08 | Anesthesiology Progress Note ---
Anesthesia Post Op Note Date & Time Aug 24, 2017 at 13:08 Vital Signs Pain Intensity: 0 Vital Signs Past 12 Hours Date Time Temp Pulse Resp B/P (MAP) Pulse Ox O2 Delivery O2 Flow Rate FiO2 08/24/17 13:02 73 18 100/74 (83) 97 Room Air 08/24/17 12:47 76 18 112/50 (70) 98 Room Air 08/24/17 11:32 36.5 83 18 122/60 (80) 98 Room Air Notes Mental Status: alert / awake / arousable, participated in evaluation Pt Amnestic to Procedure: Yes Nausea / Vomiting: adequately controlled Pain: adequately controlled Airway Patency, RR, SpO2: stable & adequate BP & HR: stable & adequate Hydration State: stable & adequate Anesthetic Complications: no major complications apparent
[2017-08-24 13:17] VITALS: BP 112/73; PULSE 71; O2SAT 98
== END | disposition home or self-care (01) ==
LOC: C.GI 10:51
PROVIDERS: ATTEND Internal Medicine
DX: Z09 Encounter for follow-up examination after completed treatment for conditions other than malignant neoplasm (principal); K64.8 Other hemorrhoids; Z87.19 Personal history of other diseases of the digestive system; J44.9 Chronic obstructive pulmonary disease, unspecified; G47.33 Obstructive sleep apnea (adult) (pediatric); Z98.890 Other specified postprocedural states; Z88.5 Allergy status to narcotic agent; Z87.891 Personal history of nicotine dependence; Z68.20 Body mass index [BMI] 20.0-20.9, adult